=== PATIENT | female | born 1965 | race Caucasian/White ===

== ENCOUNTER 2018-08-17 17:29 | Emergency (ER) | payer OTHER ==
[2018-08-17] MEDS ORDERED: NS 1,000 ML IV ONE (17:52)
[2018-08-17] MEDS ORDERED: DEXAMETHASONE 4 MG/ML VIAL IVP ONE (17:53)
[2018-08-17] MEDS ORDERED: KETOROLAC 15 MG/1 ML SDV IVP ONE (17:53)
[2018-08-17] MEDS ORDERED: DIAZEPAM 5 MG/ML 1 ML SYR IVP ONE (17:53)
--- NOTE | 2018-08-17 17:55 | EDPHY ---
H & P Stated Complaint: L scapula pain x 6 days, had bilat arm numbness last nite 1am- no trauma Time Seen by Provider: 08/17/18 17:45 HPI/ROS: HPI: This is a 53-year-old female who presents with Chief Complaint: L scapula pain x 6 days, had bilat arm numbness last nite 1am- no trauma Location: Left scapula Quality: Pain Duration: 6 days Signs and Symptoms: No bleeding, + radiation both arms and hands last night, no numbness, no weakness, no tingling, no incontinence, no decreased range of motion, no swelling, no pain, no fever Timing: Worse this evening while making dinner Severity: Moderate to severe Context: Patient reports that while driving her vehicle approximately 6 days ago she started to developed left scapula pain towards her spine. She notes that is a dull aching sensation. The next day she left for the spot off for several days and just returned home yesterday. She reports that while the spa she had several massages and exercise causes and did not feel any left scapula pain at that time. She returned home yesterday and yesterday evening started to develop left scapula pain again that woke up in the middle the night last night with radiation down into both hands. She does not know was in all of her fingers or not. She is unable to tell me how long it lasted. She woke up this morning in the numbness and tingling work on. Then while making dinner this evening she started to developed left scapula pain again and she became extremely anxious and fearful. Her father has a history of coronary artery disease and CABG x4 in his 50s. She has no history of hypertension, hyperlipidemia, coronary artery disease. She denies chest pain, shortness of breath, palpitations, lower extremity edema. No recent long distance travel. Does not take hormone replacement therapy. Nonsmoker. Modifying Factors: See above Comment: ROS: A comprehensive 10 system review of systems is otherwise negative aside from elements mentioned in the history of present illness. MEDICAL/SURGICAL/SOCIAL HISTORY: Medical history: Generally healthy. Does not take any regular medications. Surgical history: Finger surgery Social history: . Employed. Nonsmoker CONSTITUTIONAL: Tearful, nontoxic-appearing, middle-aged white female, at bedside awake and alert, no obvious distress HEENT: Atraumatic and normocephalic. NECK: supple, no midline tenderness, flexion 45 degrees, extension 45 degrees, right and left lateral flexion 45 degrees. No meningismus. Cardiovascular: Normal S1/S2, regular rate, regular rhythm, without murmur rub or gallop. PULMONARY/CHEST: Symmetrical and nontender. no crepitus. Clear to auscultation bilaterally. Good air movement. No accessory muscle usage. ABDOMEN: Soft, nondistended, nontender, no ecchymosis. PELVIC: no pain with rocking; bilateral hips flexion 125 degrees, extension 30 degrees, with no pain internal rotation and no pain external rotation. BACK: No midline tenderness, left T1-T2 reproducible paraspinous muscle tenderness with spasm, deep tendon reflexes 2/2, no pain with straight leg raise , No foot drop. Achilles reflexes are equal bilaterally. Able to walk on heels and toes without difficulty. EXTREMITIES: 2/2 pulses, strength 5/5, left SHOULDER: Arc test abduction to 180, abduction to 45, horizontal flexion 130, horizontal extension to 45, deltoid strength 5/5. No pain with Neer test/Silverio test (impingement). No Tenderness to palpation over AC joint. DIP/PIP/MCP flexion/extension intact with good light touch sensation. no deformities, no clubbing, no cyanosis or edema. NEUROLOGICAL: no focal neuro deficits. GCS 15. Light touch sensation intact. SKIN: Warm and dry, no erythema. no rash. Good capillary refill. Source: Patient Exam Limitations: No limitations - Personal History Tetanus Vaccine Date: 2008 - Medical/Surgical History Hx Asthma: No Hx Chronic Respiratory Disease: No Hx Diabetes: No Hx Cardiac Disease: No Hx Renal Disease: No Hx Cirrhosis: No Hx Alcoholism: No Hx HIV/AIDS: No Hx Splenectomy or Spleen Trauma: No Other PMH: SURGERY LEFT 5TH FINGER - Social History Smoking Status: Never smoked Constitutional: Initial Vital Signs Temperature (C) 36.5 C 08/17/18 17:36 Heart Rate 70 08/17/18 17:36 Respiratory Rate 16 08/17/18 17:36 Blood Pressure 140/86 H 08/17/18 17:36 O2 Sat (%) 97 08/17/18 17:36 O2 Delivery Mode Room Air Allergies/Adverse Reactions: Penicillins Allergy (Unknown, Verified 04/19/15 15:42) Home Medications: Medication Instructions Recorded Cyclobenzaprine [Flexeril 10 MG 10 mg PO TID PRN #15 tab 08/17/18 (*)] methylPREDNISolone [Medrol Dose 1 each PO AD #0 ea 08/17/18 Abhijeet] Medical Decision Making - Diagnostics Imaging Results: Imaging Impressions Cervical Spine MRI 08/17/18 17:53 Impression: 1. Degenerative disk disease mid to lower cervical spine with findings most prominent at C5-C6 and at C6-C7 as detailed above. Please see findings at specific disk levels. Findings discussed with Gaye Overton PAC at 19:09 hour, 08/17/2018. Thoracic Spine MRI 08/17/18 17:53 Impression: Normal MRI of the thoracic spine. ED Course/Re-evaluation: Vital signs reviewed and slightly elevated blood pressure noted. Placed on secured entrance monitor. IV access, laboratory studies, EKG, MRI cervical and MRI thoracic ordered Patient given 1 L normal saline, IV Toradol 15 mg, IV Decadron 8 mg and IV Valium 5 mg 1800: EKG my read with attending shows no acute ischemic changes, no arrhythmias, no heart block, normal sinus rhythm 1829: Notified by [facility] that troponin 0.00 1850: Labs reviewed. No signs of leukocytosis/anemia/platelet dysfunction/ALEXIA/ electrolyte imbalance/VTE/ACS. Suspect this is musculoskeletal in nature. 0: Called by Dr. Terrell, radiology, advises cervical MRI shows: Degenerative disk disease mid to lower cervical spine with findings most prominent at C5-C6 and at C6-C7 with moderate spinal stenosis and moderate foraminal stenosis. 1934: Called by Dr. Terrell, radiology who advises thoracic MRI is unremarkable. 0: Reassessed patient who reports moderate relief of symptoms. Will give patient Medrol Dosepak, Flexeril as needed for muscle spasms, neurosurgery referral No signs of neurovascular compromise/tenting of skin/compartment syndrome/ extremities and joints examined above and below area of concern and are neurovascularly intact/cauda equina syndrome/epidural hematoma/diskitis. This patient was seen under the supervision of my secondary supervising physician. I evaluated care for this patient with attending. Discussed this patient with Dr. Moody Differential Diagnosis: Back pain including but not limited to muscular pain, herniated disc, spine fracture, intra-abdominal causes and urinary tract infection. - Data Points Laboratory Results: Laboratory Results 08/17/18 18:08 08/17/18 18:08 08/17/18 08/17/18 08/17/18 18:09 18:08 18:08 WBC RBC Hgb Hct MCV MCH MCHC RDW Plt Count MPV Neut % (Auto) Lymph % (Auto) [place] % (Auto) Eos % (Auto) Baso % (Auto) Nucleat RBC Rel Count Absolute Neuts (auto) Absolute Lymphs (auto) Absolute Monos (auto) Absolute Eos (auto) Absolute Basos (auto) Absolute Nucleated RBC Immature Gran % Immature Gran # D-Dimer 0.35 ug/mLFEU ug/mLFEU (0.00-0.50) Sodium 137 mEq/L mEq/L (135-145) Potassium 3.9 mEq/L mEq/L (3.5-5.2) Chloride 104 mEq/L mEq/L (97-110) Carbon Dioxide 26 mEq/l mEq/l (22-31) Anion Gap 7 mEq/L mEq/L (6-14) BUN 13 mg/dL mg/dL (7-23) Creatinine 0.8 mg/dL mg/dL (0.6-1.0) Estimated GFR > 60 Glucose 87 mg/dL mg/dL (70-100) Calcium 9.5 mg/dL mg/dL (8.5-10.4) POC Troponin I 0.00 ng/mL ng/mL (0.00-0.08) 08/17/18 18:08 WBC 7.52 10^3/uL 10^3/uL (3.80-9.50) RBC 4.41 10^6/uL 10^6/uL (4.18-5.33) Hgb 13.8 g/dL g/dL (12.6-16.3) Hct 40.7 % % (38.0-47.0) MCV 92.3 fL fL (81.5-99.8) MCH 31.3 pg pg (27.9-34.1) MCHC 33.9 g/dL g/dL (32.4-36.7) RDW 12.9 % % (11.5-15.2) Plt Count 232 10^3/uL 10^3/uL (150-400) MPV 10.2 fL fL (8.7-11.7) Neut % (Auto) 62.8 % % (39.3-74.2) Lymph % (Auto) 28.7 % % (15.0-45.0) [place] % (Auto) 7.2 % % (4.5-13.0) Eos % (Auto) 0.7 % % (0.6-7.6) Baso % (Auto) 0.5 % % (0.3-1.7) Nucleat RBC Rel Count 0.0 % % (0.0-0.2) Absolute Neuts (auto) 4.72 10^3/uL 10^3/uL (1.70-6.50) Absolute Lymphs (auto) 2.16 10^3/uL 10^3/uL (1.00-3.00) Absolute Monos (auto) 0.54 10^3/uL 10^3/uL (0.30-0.80) Absolute Eos (auto) 0.05 10^3/uL 10^3/uL (0.03-0.40) Absolute Basos (auto) 0.04 10^3/uL 10^3/uL (0.02-0.10) Absolute Nucleated RBC 0.00 10^3/uL 10^3/uL (0-0.01) Immature Gran % 0.1 % % (0.0-1.1) Immature Gran # 0.01 10^3/uL 10^3/uL (0.00-0.10) D-Dimer Sodium Potassium Chloride Carbon Dioxide Anion Gap BUN Creatinine Estimated GFR Glucose Calcium POC Troponin I Medications Given: Discontinued Medications Dexamethasone (Decadron Injection) 8 mg IVP EDNOW ONE Stop: 08/17/18 17:54 Last Admin: 08/17/18 18:10 Dose: 8 mg Diazepam (Valium) 5 mg IVP EDNOW ONE Stop: 08/17/18 17:54 Last Admin: 08/17/18 18:11 Dose: 5 mg Sodium Chloride (Ns) 1,000 mls @ 0 mls/hr IV EDNOW ONE; Wide Open PRN Reason: Protocol Stop: 08/17/18 17:53 Last Admin: 08/17/18 18:07 Dose: 1,000 mls Ketorolac Tromethamine (Toradol) 15 mg IVP EDNOW ONE Stop: 08/17/18 17:54 Last Admin: 08/17/18 18:08 Dose: 15 mg Point of Care Test Results: Chemistry 08/17/18 18:09 POC Troponin I 0.00 ng/mL ng/mL (0.00-0.08) Departure - Departure Disposition: Home, Routine, Self-Care Clinical Impression: Degenerative disc disease, cervical, Foraminal stenosis of cervical region, Cervical stenosis of spinal canal Condition: Good Instructions: Degenerative Disc Disease (ED), Cervical Spinal Stenosis (ED) Additional Instructions: Take steroid taper as directed. Consume a minimum of 8-10 glasses of water or electrolyte fluid replacement drinks while taking steroids. Take Tylenol 650 mg every 4 hours and/or Ibuprofen 600 mg every 8 hours with food as needed for pain. Use Flexeril every 8 hr as needed for muscle spasms. Apply moist heat for 30 minutes at a time; 2-3 times per day for the next 1-2 days. Follow up with Neurosurgery in 7-10 days at which time they will evaluate and recommend therapeutic options. Referrals: Adam Kent MD [Medical Doctor] - As per Instructions Prescriptions: Cyclobenzaprine [Flexeril 10 MG (*)] 10 mg PO TID PRN #15 tab PRN Reason: Spasms methylPREDNISolone [Medrol Dose Abhijeet] 1 each PO AD #0 ea
[2018-08-17 18:25] LABS: PLATELET COUNT 232 10^3/uL (150-400)
[2018-08-17 19:56] VITALS: BP 123/76
== END 2018-08-17 19:54 | disposition home or self-care (01) ==
DX: M50.30 Other cervical disc degeneration, unspecified cervical region (principal); M99.71 Connective tissue and disc stenosis of intervertebral foramina of cervical region; M48.02 Spinal stenosis, cervical region
CPT/HCPCS: 84484-ER; 96374; J1100; J1885; J3360